=== PATIENT | male | born 1980 | race Caucasian/White ===

== ENCOUNTER 2022-12-29 04:02 | Emergency (ER) | payer SELFPAY ==
[2022-12-29] MEDS ORDERED: morphine CARPU-JECT 4 MG/1 ML DISP.SYRIN IVPUSH ONE (04:05)
[2022-12-29] MEDS ORDERED: SODIUM CHLORIDE 1,000 ML IV ONE (04:06)
[2022-12-29 04:09] VITALS: BP 197/140; PULSE 124; RESP 19; TEMP 99.7; BMI 29.5
== END 2022-12-29 04:26 | disposition left against medical advice (07) ==
LOC: FER 04:02
DX: R10.32 Left lower quadrant pain (principal)
CPT/HCPCS: 99281-25

== ENCOUNTER 2022-12-29 04:30 | Emergency (ER) | payer SELFPAY ==
[2022-12-29 04:41] VITALS: RESP 18; TEMP 99.7; BMI 30.4
[2022-12-29] MEDS ORDERED: SODIUM CHLORIDE 1,000 ML IV STA (05:03)
[2022-12-29 05:46] LABS: BASO % 1.2 % (0-2.0); EOS % 1.8 % (0-4.5); HEMATOCRIT 39.8 % (35.4-49); HEMOGLOBIN 12.9 GM/dL (11.7-16.9); LYMPH % 14.5 % (8-40); MCH 24.5 pg (25.7-33.7); MCHC 32.3 g/dl (32.0-35.9); MEAN CELL VOLUME 75.8 fl (80-96); MEAN PLT VOLUME 7.6 fl (7.5-11.1); MONO % 8.1 % (3.8-10.2); NEUT % 74.4 % (42.8-82.8); PLATELET COUNT 372 10^3/uL (134-434); RBC 5.25 M/mm3 (4.00-5.60); RDW 17.3 % (11.9-15.9); WHITE BLOOD COUNT 9.8 K/mm3 (4.0-10.0)
[2022-12-29 05:47] LABS: PH,URINE 7.5 (5.0-8.0); URINE APPEARANCE CLEAR; URINE BILIRUBIN NEGATIVE (NEGATIVE); URINE COLOR YELLOW; URINE GLUCOSE (UA) NEGATIVE (NEGATIVE); URINE KETONE NEGATIVE (NEGATIVE); URINE LEUK ESTERASE NEGATIVE (NEGATIVE); URINE NITRITE NEGATIVE (NEGATIVE); URINE PROTEIN TRACE (NEGATIVE); URINE UROBILINOGEN 0.2 mg/dL (0.2-1.0)
[2022-12-29 05:57] LABS: POTASSIUM 4.5 mmol/L (3.5-5.1)
[2022-12-29 05:59] LABS: CALCIUM 9.3 mg/dL (8.5-10.1)
[2022-12-29 06:00] LABS: ALBUMIN 3.7 g/dl (3.4-5.0); BLOOD UREA NITROGEN 11.7 mg/dL (7-18)
[2022-12-29 06:03] LABS: CREATININE 1.1 mg/dL (0.55-1.3)
[2022-12-29 06:05] LABS: BILIRUBIN,TOTAL 0.2 mg/dL (0.2-1)
[2022-12-29 07:03] LABS: INR 1.06 (0.83-1.09); PROTHROMBIN TIME (PATIENT) 12.3 SEC (9.7-13.0)
[2022-12-29 07:05] LABS: ACTIVATED PTT 32.3 SECONDS (25.2-36.5)
[2022-12-29 09:46] VITALS: BP 167/113
[2022-12-29] MEDS ORDERED: SODIUM CHLORIDE 1,000 ML IV ONE (09:50)
[2022-12-29 10:20] VITALS: PULSE 100
== END 2022-12-29 10:23 | disposition home or self-care (01) ==
LOC: JER 04:30
PROC: 3E0337Z Introduction of Electrolytic and Water Balance Substance into Peripheral Vein, Percutaneous Approach (ICD-10-PCS; principal; 2022-12-29)
DX: R10.30 Lower abdominal pain, unspecified (principal); K59.00 Constipation, unspecified; K57.92 Diverticulitis of intestine, part unspecified, without perforation or abscess without bleeding
CPT/HCPCS: 36415; 71045-TC-FY; 74177-TC; 80053; 81003; 83690; 84484; 85025; 85610; 85730; 93005; 93010; 99285-25; Q9967

== ENCOUNTER 2023-06-28 15:07 | Emergency (ER) | payer OTHER ==
[2023-06-28 15:20] VITALS: BP 172/107; PULSE 95; RESP 17; TEMP 98.6; BMI 30.4
[2023-06-28] MEDS ORDERED: DEXAMETHASONE SOD PHOSPHATE 10 MG/1 ML VIAL IVPUSH ONE (21:19)
[2023-06-28] MEDS ORDERED: IBUPROFEN 400 MG TABLET (FP) PO ONE (21:20)
== END 2023-06-28 23:27 | disposition left against medical advice (07) ==
LOC: JER 15:07
DX: H49.22 Sixth [abducent] nerve palsy, left eye (principal); H53.2 Diplopia
CPT/HCPCS: 70450-TC; 70544-TC; 70551-TC; 99285-25